=== PATIENT | male | born 1945 | race Caucasian/White ===

== ENCOUNTER 2021-09-13 12:32 | Emergency (ER) | payer MEDICARE, OTHER, SELFPAY ==
--- NOTE | ~2021-09-13 | XR_ITS ---
EXAMINATION: XR chest 1V portable DATE: 09/13/2021 13:04 INDICATION: Weakness. Labored breathing. TECHNIQUE: A single frontal view of the chest was obtained. COMPARISON: None. FINDINGS: There is a diffuse interstitial pattern, consistent with mild pulmonary edema. No pleural e ffusion or pneumothorax. The heart size is normal. There are changes of heart valve replacement. A le ft upper extremity peripherally inserted central venous catheter (PICC) is seen with tip in the super ior vena cava. IMPRESSION: 1. Mild pulmonary edema. Reviewed, dictated and finalized at location A. IMPRESSION: 1. Mild pulmonary edema.
[2021-09-13 12:30] VITALS: RESP 28
--- NOTE | 2021-09-13 12:35 | ECG_ITS ---
Measurements Intervals [place] Rate: 106 P: -44 OR: 269 QRS: -60 QRSD: 180 T: 108 QT: 412 QTc: 549 Interpretive Statements ATRIAL FLUTTER/TACHYCARDIA WITH RAPID VENTRICULAR RESPONSE INTRAVENTRICULAR CONDUCTION DELAY LEFT VENTRICULAR HYPERTROPHY WITH ST-T CHANGE LATERAL INFARCT, AGE INDETERMINATE ST-T WAVE ABNORMALITY IN HIGH LATERAL LEADS- CONSIDER ISCHEMIA ABNORMAL ECG Electronically Signed On 09-13-2021 13:12:24 CDT by Shashi Pompa D.O.
[2021-09-13 12:39] VITALS: BP 91/45; PULSE 107; RESP 26; TEMP 36.8; O2SAT 97
[2021-09-13 12:46] VITALS: BP 87/62; PULSE 108; RESP 28; O2SAT 100
[2021-09-13 12:50] LABS: Basophils Absolute Auto 0.1 K/mm3 (0.0-0.1); Basophils Percent Auto 0.3 % (0.2-1.2); Hematocrit 32.2 % (42.0-52.0); Hemoglobin 9.8 g/dL (14.0-18.0); Immature Granulocyte Absolute 1.21 K/mm3 (0.00-0.031); Immature Granulocyte Percent A 3.9 % (0-0.5); Lymphocytes Absolute Auto 1.87 K/mm3 (0.9-3.2); Mean Corpuscular HGB Conc 30.4 g/dl (32-36); Mean Corpuscular Hemoglobin 28.7 pg (26-34); Mean Corpuscular Volume 94.4 fl (80-100); Mean Platelet Volume 11.4 fl (7.4-10.4); Monocytes Absolute Auto 1.7 K/mm3 (0.1-0.6); Monocytes Percent Auto 5.3 % (2.6-8.5); Neutrophils Absolute Auto 26.1 K/mm3 (1.3-6.7); Neutrophils Percent Auto 84.5 % (45.5-73.1); Nucleated Red Blood Cells Perc 0.1 % (0.0-0.2); Platelet Count Result 517 k/mm3 (150-375); Red Blood Count 3.41 M/mm3 (4.6-6.20); Red Cell Distribution Width 15.6 % (11.5-14.5); White Blood Count 30.9 K/mm3 (4.5-10.0)
[2021-09-13] MEDS: SODIUM CHLORIDE 0.9% IV 1,000 ML 999 ML IV CONT (12:55)
[2021-09-13 13:02] LABS: Prothrombin Time 22.1 Seconds (11.1-14.7)
[2021-09-13 13:03] LABS: Partial Thromboplastin Time 41.4 SECONDS (22.3-36.8)
[2021-09-13 13:28] LABS: Albumin Level 3.5 g/dL (3.5-5.1); Alkaline Phosphatase 199 U/L (38-126); Anion Gap 26 mmol/L (8-16); Bilirubin,Total 0.7 mg/dL (0.2-1.3); Blood Urea Nitrogen 40 mg/dL (9-20); Calcium 8.6 mg/dL (8.4-10.2); Carbon Dioxide 7 mmol/L (22-30); Chloride 95 mmol/L (98-107); Estimated CRCL calculation 32 ml/min; Estimated Glomerular Filt Rate 35; Glucose 273 mg/dL (65-110); Potassium 4.6 mmol/L (3.4-5.0); Sodium 128 mmol/L (137-145)
--- NOTE | 2021-09-13 13:34 | PC.NURSE ---
pt blood pressure 66/42. EDP aware and started Levophed drip VORB. EDP at bedside. family member stating pt is a DNR and wants comfort measures only. pt asystole on the monitor. no pulse palpable. pt's TOD [address] Clemente
--- NOTE | 2021-09-13 13:37 | ED.SYNCOPE ---
HPI - Syncope General Chief Complaint: Dizziness Stated Complaint: WEAKNESS, SOB, LUNG INFECTION X 2 WEEKS Time Seen by Provider: 09/13/21 12:36 History of Present Illness HPI narrative: Patient is a 76-year-old male who presents ER with weakness. Reports that he was discharged from [facility] 2 days ago. Since being home he is increased weakness more so today where he cannot get up and walk. He was hospitalized on 08/25/2021. 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 He currently has a PICC line by which she is receiving ceftriaxone to treat the infection. Patient is denying any chest pain or chest pressure. He reports he has extreme shortness of breath when he exerts himself. Reports during his previous hospitalization he received 3 units of blood for possible occult GI bleed. Patient is also on immunotherapy for esophageal cancer and prostate cancer. His oncologist is also located at [facility]. Denies new fevers or chills or productive cough. Related Data Allergies Allergy/AdvReac Type Severity Reaction Status Date / Time No Known Allergies Allergy Verified 09/13/21 12:47 Review of Systems Review of Systems: All systems reviewed & are unremarkable except as noted in HPI and below Constitutional: Constitutional: Denies chills, Reports fatigue, Denies fever(s) and Reports weakness ENT: Denies nasal congestion and Denies sore throat Cardiovascular: Cardiovascular: Denies chest pain, Denies rapid heart rate and Denies radiating jaw, neck or arm pain Respiratory: Respiratory: Denies cough, Reports dyspnea and Denies wheezing Gastrointestinal: Gastrointestinal: Denies abdominal pain, Denies nausea and Denies vomiting Neurologic: Denies headache(s), Denies focal weakness and Denies numbness PMFSH Past Medical History Medical History (Updated 09/13/21 @ 14:50 by Silvio Clemente MD) Abscess of aortic root Esophageal cancer Hypercholesterolemia Hypertension Prostate cancer Surgical History Surgical History (Updated 09/13/21 @ 14:50 by Silvio Clemente MD) Aortic valve replaced History of appendectomy History of cholecystectomy History of prostatectomy Social History Social History (Updated 09/13/21 @ 14:51 by Silvio Clemente MD) Social History: Former alcoholic, quit in 2018. Exam Narrative: GENERAL: Chronically ill-appearing, well-nourished, and in mild distress. HEAD: Normocephalic, atraumatic. EYES: PERRL and EOMI. pale conjunctiva. ENT: Mucous membranes moist. CHEST: Clear to auscultation. No respiratory distress. HEART: Tachycardic and regular. Normal peripheral pulses. ABDOMEN: Soft, nontender, nondistended EXTREMITIES: Normal range of motion. No edema. Left upper extremity PICC line. SKIN: Cool, dry, pale. NEURO: No focal deficits. Alert and oriented x3. Course Reevaluation(s) Reevaluation #1: Patient's blood pressure poorly responding to fluid. X-ray with pulmonary edema. Patient with continued signs of hypoperfusion. Went in to reassess the patient he is awake alert and talking. is at bedside. Patient then started staring to the right side and could not converse mumbling words. present and reports that he is a DNR and that no CPR or patient is to be performed. Levophed was initiated through patient's PICC line. Patient went into cardiopulmonary arrest. He was pronounced as having at 1334. Date: 09/13/21 Time: 13:38 Reevaluation #2: Patient PCP Dr. Aguirre will sign the certificate. Date: 09/13/21 Time: 13:45 Vital Signs Vital signs: Vital Signs Respiratory Rate 28 H 09/13/21 12:30 Temperature 98.2 F 09/13/21 12:39 Pulse Rate 108 H 09/13/21 12:46 Respiratory Rate 28 H 09/13/21 12:46 Blood Pressure 87/62 L 09/13/21 12:46 Pulse Oximetry 100 09/13/21 12:46 MDM - Syncope Lab Data Result diagrams: 09/13/21 12:42 09/13/21 12:42 Labs: Lab Results 09/13/21 09/13/21
[2021-09-13 13:49] LABS: Alanine Aminotransferase 904 U/L (4-50); Aspartate Amino Transferase 2133 U/L (17-59)
--- NOTE | 2021-09-13 13:57 | PC.NURSE ---
1333 - TOD 1339 - MIR[facility] AT [facility] RELEASED BODY TO HOME. 1348 - SUZETTE AT [facility] - PT IS INELIGIBLE, MAY RELEASE TO HOME.
--- NOTE | 2021-09-13 14:57 | PC.NURSE ---
HOME CONTACTED - ANNA
--- NOTE | 2021-09-13 15:17 | PC.NURSE ---
at bedside and removed plain gold wedding band at this time .
== END 2021-09-13 15:50 | disposition expired ==
PROVIDERS: Emergency Provider Emergency Medicine; PCP Family Medicine
DX: A41.9 Sepsis, unspecified organism (principal); R65.21 Severe sepsis with septic shock; I51.89 Other ill-defined heart diseases; I46.9 Cardiac arrest, cause unspecified; E78.00 Pure hypercholesterolemia, unspecified; I10 Essential (primary) hypertension; Z85.46 Personal history of malignant neoplasm of prostate; Z85.01 Personal history of malignant neoplasm of esophagus; Z95.2 Presence of prosthetic heart valve; Z90.79 Acquired absence of other genital organ(s); Z66 Do not resuscitate; I48.92 Unspecified atrial flutter; R00.0 Tachycardia, unspecified; I45.9 Conduction disorder, unspecified; R94.31 Abnormal electrocardiogram [ECG] [EKG]; J81.1 Chronic pulmonary edema
CPT/HCPCS: 36415; 71045; 80053; 85025; 85610; 85730; 86850; 86900; 86901; 93005; 96360; 99291; J7030